=== PATIENT | male | born 1985 | race Caucasian/White ===

== ENCOUNTER 2022-04-01 06:38 | Emergency (ER) | payer SELFPAY ==
[~2022-04-01] VITALS: Ht 177.8 cm; Wt 81.6 kg
[2022-04-01 06:43] VITALS: BP_SYST 142
--- NOTE | 2022-04-01 06:46 | NUR ---
PATIENT STATES VISION IS GETTING INCREASINGLY WORSE IN LEFT EYE ALONG WITH PAIN SINCE INCIDENT. STATES THE INCIDENT HAPPENED ON 03/30/22. PATIENT AMBULATED TO BED 6 WITHOUT ISSUE.
--- NOTE | 2022-04-01 06:51 | NUR ---
DR. HERRERA AT BEDSIDE.
[2022-04-01] MEDS ORDERED: HYDR-3917 PO (07:13)
[2022-04-01] MEDS ORDERED: OFLO5DRO6 EACH EYE (07:13)
--- NOTE | 2022-04-01 07:30 | NUR ---
Assumed care of pt and pt is A&Ox4. ZSkin intact. pt c/o on working at home on 03/30/22 inj his backyard grinding on metal when he said he felt a piece of object flew in his left eye. States he has been having pain ever since and today this morning he states he is having blurrewd vision on left eye and increased pain. NKA. No knwon medical conditions. no vision loss on either eye sight. Skin intact. VSS. bed in lowest position. Ambulatory with steady gait.
--- NOTE | 2022-04-01 07:59 | NUR ---
Patient given written and verbal discharge instructions and verbalizes understanding. ER MD discussed with patient the results and treatment provided. Patient in stable condition. ID arm band removed. Rx of HYDROCODONE & OFLOXACIN given. Patient educated on pain management and to follow up with PMD. Pain Scale 0/10. Opportunity for questions provided and answered. Medication side effect fact sheet provided.
[2022-04-01 08:00] VITALS: BP_SYST 124
== END 2022-04-01 08:00 | disposition home or self-care (01) ==
LOC: SED 06:38
DX: T15.92XA Foreign body on external eye, part unspecified, left eye, initial encounter (principal); Z79.899 Other long term (current) drug therapy; X58.XXXA Exposure to other specified factors, initial encounter; Y93.89 Activity, other specified; Y92.89 Other specified places as the place of occurrence of the external cause; Y99.8 Other external cause status
CPT/HCPCS: 99284